=== PATIENT | female | born 1985 | race Caucasian/White ===

== ENCOUNTER 2017-03-01 08:45 | Day surgery (SDC) | payer OTHER ==
[2017-02-28 14:18] LABS: CHLORIDE,CL 106 mmol/L (98-110); SODIUM,NA 140 mmol/L (136-146)
[~2017-03-01 08:45] MED LIST: Bupivacaine 0.25% 10 ML SDV ONE; Fluorescein 5 ML Vial ONE; Lidocaine 2% 5 ML SDV ONE; Methylene Blue 50 MG/10 ML Ampule ONE; Midazolam 1 MG/ML 2 ML SDV ONE; Neostigmine Methylsulfate 1 MG/ML 5 ML Syringe ONE; Ondansetron 4 MG/2 ML SDV ONE; Propofol 200 MG/20 ML SDV ONE; Rocuronium 10 MG/ML 10 ML Syringe ONE; Sodium Chloride 0.9% 10 ML Syringe FLUSH PRN; Sodium Chloride 0.9% 2.5 ML Syringe FLUSH PRN; ceFAZolin 2 GM in Premix Bag 1 BAG IV ONE; fentaNYL 100 MCG/2 ML SDV ONE
--- NOTE | 2017-03-01 09:21 | PCM.PREANE ---
Preanesthetic Assessment - Anesthesia/Transfusion/Family Hx Anesthesia History: Prior Anesthesia Without Reaction Family History of Anesthesia Reaction: No Transfusion History: No Prior Transfusion(s) Intubation History: Unknown - Review of Systems General: No Symptoms Pulmonary: No Symptoms Cardiovascular: No Symptoms Gastrointestinal: No Symptoms Neurological: No Symptoms Other: Reports: None - Physical Assessment O2 Sat by Pulse Oximetry: 98 Respiratory Rate: 16 Vital Signs: Last Vital Signs Temp 36.3 C 03/01/17 09:15 Pulse 67 03/01/17 09:15 Resp 16 03/01/17 09:15 BP 113/68 03/01/17 09:15 Pulse Ox 98 03/01/17 09:15 Height: 1.66 m Weight: 78.018 kg ASA Class: 2 Mental Status: Alert & Oriented x3 Airway Class: Mallampati = 2 Dentition: Reports: Normal Dentition Thyro-Mental Finger Breadths: 3 Mouth Opening Finger Breadths: 3 ROM/Head Extension: Full Lungs: Clear to Auscultation, Normal Respiratory Effort Cardiovascular: Regular Rate, Regular Rhythm - Lab Values: Laboratory Last Values WBC 10.37 K/uL (4.0-11.0) 02/28/17 13:35 RBC 4.92 M/uL (4.30-5.90) 02/28/17 13:35 Hgb 13.8 g/dL (12.0-16.0) 02/28/17 13:35 Hct 40.9 % (36.0-46.0) 02/28/17 13:35 MCV 83.1 fL (80.0-98.0) 02/28/17 13:35 MCH 28.0 pg (27.0-32.0) 02/28/17 13:35 MCHC 33.7 g/dL (31.0-37.0) 02/28/17 13:35 RDW Std Deviation 41.6 fl (28.0-62.0) 02/28/17 13:35 RDW Coeff of Shawn 14 % (11.0-15.0) 02/28/17 13:35 Plt Count 265 K/uL (150-400) 02/28/17 13:35 MPV 10.10 fL (7.40-12.00) 02/28/17 13:35 Nucleated RBC % 0.0 /100WBC 02/28/17 13:35 Nucleated RBCs # 0 K/uL 02/28/17 13:35 Sodium 140 mmol/L (136-146) 02/28/17 13:35 Potassium 3.9 mmol/L (3.5-5.1) 02/28/17 13:35 Chloride 106 mmol/L (98-110) 02/28/17 13:35 Carbon Dioxide 26 mmol/L (21-31) 02/28/17 13:35 BUN 15 mg/dL (6.0-23.0) 02/28/17 13:35 Creatinine 1.0 mg/dL (0.6-1.5) 02/28/17 13:35 Est Cr Clr Drug Dosing 75.51 mL/min 02/28/17 13:35 Estimated GFR (MDRD) > 60.0 ml/min 02/28/17 13:35 Glucose 88 mg/dL (60-110) 02/28/17 13:35 Calcium 9.6 mg/dL (8.8-10.8) 02/28/17 13:35 HCG, Qual NEGATIVE (NEG) 02/28/17 13:35 Blood Type O NEGATIVE 02/28/17 13:35 Antibody Screen NEGATIVE 02/28/17 13:35 - Allergies Allergies/Adverse Reactions: Allergies Allergy/AdvReac Type Severity Reaction Status Date / Time melon Allergy throat Verified 02/24/17 08:55 swelling - Blood Blood Available: No - Anesthesia Plan Pre-Op Medication Ordered: None - Acknowledgements Anesthesia Type Planned: General Anesthesia Pt an Appropriate Candidate for the Planned Anesthesia: Yes Alternatives and Risks of Anesthesia Discussed w Pt/Guardian: Yes Pt/Guardian Understands and Agrees with Anesthesia Plan: Yes PreAnesthesia Questionnaire HEENT History: Reports: Other (See Below) Other HEENT History: wears glasses Respiratory History: Reports: Asthma Other Respiratory History: sports induced asthma Gastrointestinal History: Reports: GERD SODA DIALYZER History: Reports: Psychiatric History: Reports: Anxiety Endocrine/Metabolic History: Reports: Other (See Below) Other Endocrine/Metabolic History: hypothyroid during Hematologic History: Reports: Anemia - Past Surgical History Head Surgeries/Procedures: Reports: None HEENT Surgical History: Reports: Adenoidectomy, Tonsillectomy, Other (See Below ) (turbinectomy during the same surgery (T&A)) - SUBSTANCE USE Smoking Status *Q: Never Smoker Recreational Drug Use History: No - HOME MEDS Home Medications: Home Meds Albuterol [IJD: Albuterol HFA] 2 puff INH ASDIRECTED PRN 02/24/17 [History] Docusate Sodium [Stool Softener] 1 tab PO ASDIRECTED 02/24/17 [History] Escitalopram [Lexapro] 10 mg PO DAILY 02/24/17 [History] Hydrocortisone Acetate [Anucort-HC] 1 supp RECTAL ASDIRECTED PRN 02/24/17 [ History] Iron Supplement 20 ml PO DAILY 02/24/17 [History] Multivitamin [Multivitamins] 1 tab PO DAILY 02/24/17 [History] - CURRENT (IN HOUSE) MEDS Current Meds: Current Medications Lactated Ringer's (Ringers, Lactated) 1,000 mls @ 100 mls/hr IV ASDIRECTED ERIK Sodium Chloride (Saline Flush) 10 ml FLUSH ASDIRECTED PRN PRN Reason: Keep Vein Open Sodium Chloride (Saline Flush) 2.5 ml FLUSH ASDIRECTED PRN PRN Reason: Keep Vein Open Discontinued Medications Bupivacaine HCl (Sensorcaine-Mpf 0.25%) Confirm Administered Dose 20 ml .ROUTE .STK-MED ONE Stop: 03/01/17 07:23 Fentanyl (Sublimaze) Confirm Administered Dose 200 mcg .ROUTE .STK-MED ONE Stop: 03/01/17 08:34 Fluorescein Sodium (Ak-Fluor) Confirm Administered Dose 5 ml .ROUTE .STK-MED ONE Stop: 03/01/17 07:23 Glycopyrrolate () Confirm Administered Dose 1 mg .ROUTE .STK-MED ONE Stop: 03/01/17 08:34 Cefazolin Sodium/Dextrose 2 gm (/ Premix) 50 mls @ 100 mls/hr IV ONETIME ONE Stop: 03/01/17 08:41 Lidocaine (Xylocaine-Mpf 2%) Confirm Administered Dose 5 ml .ROUTE .STK-MED ONE Stop: 03/01/17 08:34 Methylene Blue (Provayblue) Confirm Administered Dose 50 mg .ROUTE .STK-MED ONE Stop: 03/01/17 07:23 Midazolam HCl (Versed 1 Mg/Ml) Confirm Administered Dose 2 mg .ROUTE .STK-MED ONE Stop: 03/01/17 08:34 Neostigmine Methylsulfate (Neostigmine) Confirm Administered Dose 5 mg .ROUTE .STK-MED ONE Stop: 03/01/17 08:34 Ondansetron HCl (Zofran) Confirm Administered Dose 4 mg .ROUTE .STK-MED ONE Stop: 03/01/17 08:34 Propofol (Diprivan 20 Ml) Confirm Administered Dose 200 mg .ROUTE .STK-MED ONE Stop: 03/01/17 08:34 Rocuronium [place] (Zemuron) Confirm Administered Dose 100 mg .ROUTE .STK-MED ONE Stop: 03/01/17 08:34
[2017-03-01] MEDS: Lactated Ringers 1,000 ML IV SCH ×2 (09:35→15:18)
[2017-03-01] MEDS ORDERED: ceFAZolin 1 GM Vial ONE (11:33)
[2017-03-01] MEDS ORDERED: Sodium Chloride 0.9% 20 ML ONE (11:33)
[2017-03-01] MEDS ORDERED: ePHEDrine 50 MG/ML SDV ONE (11:37)
[2017-03-01] MEDS ORDERED: Furosemide 40 MG/4 ML VIAL ONE (11:39)
[2017-03-01] MEDS ORDERED: fentaNYL 100 MCG/2 ML SDV ONE (12:05)
[2017-03-01] MEDS ORDERED: HYDROmorphone 2 MG/ML Syringe ONE (12:37)
[2017-03-01] MEDS ORDERED: Labetalol 100 MG/20 ML MDV ONE (12:50)
[2017-03-01] MEDS ORDERED: Promethazine 25 MG/ML SDV IM PRN (13:31)
[2017-03-01] MEDS ORDERED: Ondansetron 4 MG/2 ML SDV IVPUSH PRN (13:31)
[2017-03-01] MEDS ORDERED: Morphine 2 MG/ML Syringe IVPUSH PRN (13:31)
[2017-03-01] MEDS ORDERED: Ketorolac 30 MG/ML SDV IVPUSH ONE (13:31)
--- NOTE | 2017-03-01 13:31 | PCM.OPNOTE ---
- General Post-Op/Procedure Note Date of Surgery/Procedure: 03/01/17 Operative Procedure(s): laparoscopically assisted vaginal hysterectomy with bilateral salpingectomy and cystoscopy Findings: normal pelvis Pre Op Diagnosis: menometrorrhagia and pelvic pain; family history of ovarian cancer. Post-Op Diagnosis: Same Anesthesia Technique: General ET Tube Primary Surgeon: Kayla Hadley Secondary Surgeon: Candice Linton Anesthesia Provider: Kumar Adams Chief Of Staff Doctor: Rober Thomas Pathology: uterus and bilateral fallopian tubes. Fluid Replacement, Intraop: 2,500 EBL in mLs: 350 Complications: None Known Condition: Good
--- NOTE | 2017-03-01 14:07 | PCM.POSTAN ---
POST ANESTHESIA ASSESSMENT - MENTAL STATUS Mental Status: Alert, Oriented - RESPIRATORY Respiratory Status: Respiratory Rate WNL, Airway Patent, O2 Saturation Stable - CARDIOVASCULAR CV Status: Pulse Rate WNL, Blood Pressure Stable - GASTROINTESTINAL GI Status: No Symptoms - PAIN Pain Score: 2 - POST OP HYDRATION Hydration Status: Adequate & Stable - OBSERVATIONS Free Text/Narrative:: no anesthesia problems
[2017-03-01] MEDS: Ketorolac 30 MG/ML SDV IVPUSH SCH ×2 (16:25→20:46)
[2017-03-01] MEDS: Acetaminophen/oxyCODONE 325-5 MG Tab PO PRN ×2 (17:34→22:22)
[2017-03-02] MEDS: Lactated Ringers 1,000 ML IV SCH (00:54)
[2017-03-02] MEDS: Acetaminophen/oxyCODONE 325-5 MG Tab PO PRN ×2 (01:22→05:12)
[2017-03-02] MEDS: Ketorolac 30 MG/ML SDV IVPUSH SCH ×2 (03:03→09:26)
[2017-03-02 05:25] LABS: CHLORIDE,CL 110 mmol/L (98-110); SODIUM,NA 138 mmol/L (136-146)
--- NOTE | 2017-03-02 07:18 | PCM48HPAN ---
Post Anesthesia Note - EVALUATION WITHIN 48HRS OF ANESTHETIC Vital Signs in Normal Range: Yes Patient Participated in Evaluation: Yes Respiratory Function Stable: Yes Airway Patent: Yes Cardiovascular Function Stable: Yes Hydration Status Stable: Yes Pain Control Satisfactory: Yes Nausea and Vomiting Control Satisfactory: Yes Mental Status Recovered: Yes
[2017-03-02 08:14] VITALS: BP 100/52
--- NOTE | 2017-03-02 08:53 | PCM.SURGPN ---
- General Info Date of Service: 03/02/17 Date of Surgery/Procedure: 03/01/17 POD#: 1 Post-Op Diagnosis: menometrorrhagia, pelvic pain, family history of ovarian cancer. Functional Status: Reports: Pain Controlled, Tolerating Diet, Ambulating, Urinating (pain well controlled. ) - Review of Systems General: Reports: No Symptoms HEENT: Reports: No Symptoms Pulmonary: Reports: No Symptoms Cardiovascular: Reports: No Symptoms Gastrointestinal: Reports: No Symptoms Genitourinary: Reports: No Symptoms Musculoskeletal: Reports: No Symptoms Skin: Reports: No Symptoms Neurological: Reports: No Symptoms Psychiatric: Reports: No Symptoms - Patient Data Vitals - Most Recent: Last Vital Signs Temp 37.1 C 03/02/17 08:00 Pulse 80 03/02/17 08:00 Resp 16 03/02/17 08:00 BP 100/52 L 03/02/17 08:00 Pulse Ox 96 03/02/17 08:00 Weight - Most Recent: 78.018 kg I&O - Last 24 Hours: Intake & Output 03/01/17 03/02/17 03/02/17 22:59 06:59 14:59 Output Total 350 Balance -350 Lab Results Last 24 Hrs: Laboratory Results - last 24 hr 03/02/17 03/02/17 Range/Units 04:51 04:51 WBC 12.25 H (4.0-11.0) K/uL RBC 4.11 L (4.30-5.90) M/uL Hgb 11.5 L (12.0-16.0) g/dL Hct 34.4 L (36.0-46.0) % MCV 83.7 (80.0-98.0) fL MCH 28.0 (27.0-32.0) pg MCHC 33.4 (31.0-37.0) g/dL RDW Std Deviation 43.0 (28.0-62.0) fl RDW Coeff of Shawn 14 (11.0-15.0) % Plt Count 206 (150-400) K/uL MPV 10.00 (7.40-12.00) fL Neut % (Auto) 80.0 (48.0-80.0) % Lymph % (Auto) 13.6 L (16.0-40.0) % Roberts % (Auto) 5.7 (0.0-15.0) % Eos % (Auto) 0.5 (0.0-7.0) % Baso % (Auto) 0.2 (0.0-1.5) % Neut # (Auto) 9.8 H (1.4-5.7) K/uL Lymph # (Auto) 1.7 (0.6-2.4) K/uL Roberts # (Auto) 0.7 (0.0-0.8) K/uL Eos # (Auto) 0.1 (0.0-0.7) K/uL Baso # (Auto) 0.0 (0.0-0.1) K/uL Nucleated RBC % 0.0 /100WBC Nucleated RBCs # 0 K/uL Sodium 138 (136-146) mmol/L Potassium 3.8 (3.5-5.1) mmol/L Chloride 110 (98-110) mmol/L Carbon Dioxide 24 (21-31) mmol/L BUN 10 (6.0-23.0) mg/dL Creatinine 0.7 (0.6-1.5) mg/dL Est Cr Clr Drug Dosing 107.88 mL/min Estimated GFR (MDRD) > 60.0 ml/min Glucose 119 H (60-110) mg/dL Calcium 8.7 L (8.8-10.8) mg/dL Med Orders - Current: Current Medications Lactated Ringer's (Ringers, Lactated) 1,000 mls @ 100 mls/hr IV ASDIRECTED [facility] Last Admin: 03/02/17 00:54 Dose: 100 mls/hr Ketorolac Tromethamine (Toradol) 30 mg IVPUSH Q6H [facility] Stop: 03/06/17 13:32 Last Admin: 03/02/17 03:03 Dose: 30 mg Morphine Sulfate (Morphine) 2 mg IVPUSH Q2H PRN PRN Reason: Pain (severe 7-10) Last Admin: 03/01/17 19:20 Dose: 2 mg Ondansetron HCl (Zofran) 4 mg IVPUSH Q6H PRN PRN Reason: Nausea/Vomiting Last Admin: 03/01/17 18:56 Dose: 4 mg Oxycodone/Acetaminophen (Percocet 325-5 Mg) 1 - 2 tab PO Q4H PRN PRN Reason: Pain (moderate 4-6) Last Admin: 03/02/17 05:12 Dose: 2 tab Promethazine HCl (Phenergan) 25 mg IM Q6H PRN PRN Reason: Nausea/Vomiting Sodium Chloride (Saline Flush) 10 ml FLUSH ASDIRECTED PRN PRN Reason: Keep Vein Open Sodium Chloride (Saline Flush) 2.5 ml FLUSH ASDIRECTED PRN PRN Reason: Keep Vein Open Discontinued Medications Bupivacaine HCl (Sensorcaine-Mpf 0.25%) Confirm Administered Dose 20 ml .ROUTE .STK-MED ONE Stop: 03/01/17 07:23 Cefazolin Sodium (Ancef) Confirm Administered Dose 2 gm .ROUTE .STK-MED ONE Stop: 03/01/17 11:34 Ephedrine Sulfate (Ephedrine Sulfate) Confirm Administered Dose 50 mg .ROUTE .STK-MED ONE Stop: 03/01/17 11:38 Fentanyl (Sublimaze) Confirm Administered Dose 200 mcg .ROUTE .STK-MED ONE Stop: 03/01/17 08:34 Fentanyl (Sublimaze) Confirm Administered Dose 100 mcg .ROUTE .STK-MED ONE Stop: 03/01/17 12:06 Fluorescein Sodium (Ak-Fluor) Confirm Administered Dose 5 ml .ROUTE .STK-MED ONE Stop: 03/01/17 07:23 Furosemide (Lasix) Confirm Administered Dose 40 mg .ROUTE .STK-MED ONE Stop: 03/01/17 11:40 Glycopyrrolate () Confirm Administered Dose 1 mg .ROUTE .STK-MED ONE Stop: 03/01/17 08:34 Hydromorphone HCl (Dilaudid) Confirm Administered Dose 2 mg .ROUTE .STK-MED ONE Stop: 03/01/17 12:38 Cefazolin Sodium/Dextrose 2 gm (/ Premix) 50 mls @ 100 mls/hr IV ONETIME ONE Stop: 03/01/17 08:41 Last Admin: 03/01/17 14:12 Dose: Not Given Sodium Chloride (Normal Saline) Confirm Administered Dose 20 mls @ as directed .ROUTE .STK-MED ONE Stop: 03/01/17 11:34 Ketorolac Tromethamine (Toradol) 30 mg IVPUSH ONETIME ONE Stop: 03/01/17 13:32 Last Admin: 03/01/17 15:17 Dose: 30 mg Labetalol HCl (Normodyne) Confirm Administered Dose 100 mg .ROUTE .STK-MED ONE Stop: 03/01/17 12:51 Lidocaine (Xylocaine-Mpf 2%) Confirm Administered Dose 5 ml .ROUTE .STK-MED ONE Stop: 03/01/17 08:34 Methylene Blue (Provayblue) Confirm Administered Dose 50 mg .ROUTE .STK-MED ONE Stop: 03/01/17 07:23 Midazolam HCl (Versed 1 Mg/Ml) Confirm Administered Dose 2 mg .ROUTE .STK-MED ONE Stop: 03/01/17 08:34 Neostigmine Methylsulfate (Neostigmine) Confirm Administered Dose 5 mg .ROUTE .STK-MED ONE Stop: 03/01/17 08:34 Ondansetron HCl (Zofran) Confirm Administered Dose 4 mg .ROUTE .STK-MED ONE Stop: 03/01/17 08:34 Propofol (Diprivan 20 Ml) Confirm Administered Dose 200 mg .ROUTE .STK-MED ONE Stop: 03/01/17 08:34 Rocuronium [place] (Zemuron) Confirm Administered Dose 100 mg .ROUTE .STK-MED ONE Stop: 03/01/17 08:34 - Exam Wound/Incisions: Healing Well (hemostatic stitch from umbilical incision removed.) General: Alert, Oriented Neck: Supple Lungs: Clear to Auscultation Cardiovascular: Regular Rate, Regular Rhythm GI/Abdominal Exam: Normal Bowel Sounds, Soft, Non-Tender, No Organomegaly, No Distention Extremities: Normal Inspection, Normal Range of Motion, Non-Tender, No Pedal Edema, Normal Capillary Refill Skin: Warm, Dry, Intact Psy/Mental Status: Alert, Normal Affect, Normal Mood - Problem List & Annotations (1) Heavy menstrual bleeding SNOMED Code(s): 404465661 Code(s): N92.0 - EXCESSIVE AND FREQUENT MENSTRUATION WITH REGULAR CYCLE Status: Acute Current Visit: Yes (2) Family history of malignant neoplasm of ovary SNOMED Code(s): 471122718 Code(s): Z80.41 - FAMILY HISTORY OF MALIGNANT NEOPLASM OF OVARY Status: Acute Current Visit: Yes (3) Pelvic and perineal pain SNOMED Code(s): 147645162 Code(s): R10.2 - PELVIC AND PERINEAL PAIN Status: Acute Current Visit: Yes - Problem List Review Problem List Initiated/Reviewed/Updated: Yes - My Orders Last 24 Hours: Active Orders 24 hr Category Date Time Status Patient Status [ADT] Routine ADT 03/01/17 13:32 Active Antiembolic Devices [RC] PER UNIT ROUTINE Care 03/01/17 13:33 Active Notify Provider Intake and Out [RC] ASDIRECTED Care 03/01/17 13:32 Active Notify Provider Vital Signs [RC] ASDIRECTED Care 03/01/17 13:32 Active Oxygen Therapy [RC] ASDIRECTED Care 03/01/17 13:32 Active RT Incentive Spirometry [RC] Q2HWA Care 03/01/17 13:32 Active Up With Assistance [RC] PER UNIT ROUTINE Care 03/01/17 13:32 Active Up ad Nora [RC] PER UNIT ROUTINE Care 03/01/17 13:32 Active Vital Signs [RC] PER UNIT ROUTINE Care 03/01/17 08:12 Active Vital Signs [RC] PER UNIT ROUTINE Care 03/01/17 13:32 Active Regular Diet [DIET] Diet 03/01/17 Dinner Active HCG QUALITATIVE,URINE [URCHEM] Routine Lab 03/01/17 08:12 Uncollected Acetaminophen/oxyCODONE [Percocet 325-5 MG] Med 03/01/17 13:31 Active 1 - 2 tab PO Q4H PRN Ketorolac [Toradol] Med 03/01/17 13:45 Active 30 mg IVPUSH Q6H Lactated Ringers [Ringers, Lactated] 1,000 ml Med 03/01/17 09:30 Active IV ASDIRECTED Morphine Med 03/01/17 13:31 Active 2 mg IVPUSH Q2H PRN Ondansetron [Zofran] Med 03/01/17 13:31 Active 4 mg IVPUSH Q6H PRN Promethazine [Phenergan] Med 03/01/17 13:31 Active 25 mg IM Q6H PRN Sodium Chloride 0.9% [Saline Flush] Med 03/01/17 08:12 Active 10 ml FLUSH ASDIRECTED PRN Sodium Chloride 0.9% [Saline Flush] Med 03/01/17 08:12 Active 2.5 ml FLUSH ASDIRECTED PRN Peripheral IV Discontinue [OM.PC] Routine Oth 03/01/17 13:32 Ordered Peripheral IV Insertion Adult [OM.PC] Urgent Oth 03/01/17 08:12 Ordered Sequential Compression Device [OM.PC] Per Unit Routine Oth 03/01/17 08:12 Ordered Sequential Compression Device [OM.PC] Per Unit Routine Oth 03/01/17 13:32 Ordered Resuscitation Status Routine Resus Stat 03/01/17 13:31 Ordered Medication Orders Lactated Ringer's (Ringers, Lactated) 1,000 mls @ 100 mls/hr IV ASDIRECTED ERIK Last Admin: 03/02/17 00:54 Dose: 100 mls/hr Infusion: 03/02/17 00:54 Dose: 100 mls/hr Admin: 03/01/17 15:18 Dose: 100 mls/hr Infusion: 03/01/17 15:18 Dose: 100 mls/hr Admin: 03/01/17 09:35 Dose: 100 mls/hr Ketorolac Tromethamine (Toradol) 30 mg IVPUSH Q6H [facility] Stop: 03/06/17 13:32 Last Admin: 03/02/17 03:03 Dose: 30 mg Admin: 03/01/17 20:46 Dose: 30 mg Admin: 03/01/17 16:25 Dose: Morphine Sulfate (Morphine) 2 mg IVPUSH Q2H PRN PRN Reason: Pain (severe 7-10) Last Admin: 03/01/17 19:20 Dose: 2 mg Ondansetron HCl (Zofran) 4 mg IVPUSH Q6H PRN PRN Reason: Nausea/Vomiting Last Admin: 03/01/17 18:56 Dose: 4 mg Oxycodone/Acetaminophen (Percocet 325-5 Mg) 1 - 2 tab PO Q4H PRN PRN Reason: Pain (moderate 4-6) Last Admin: 03/02/17 05:12 Dose: 2 tab Admin: 03/02/17 01:22 Dose: 2 tab Admin: 03/01/17 22:22 Dose: 1 tab Admin: 03/01/17 17:34 Dose: 1 tab Promethazine HCl (Phenergan) 25 mg IM Q6H PRN PRN Reason: Nausea/Vomiting Sodium Chloride (Saline Flush) 10 ml FLUSH ASDIRECTED PRN PRN Reason: Keep Vein Open Sodium Chloride (Saline Flush) 2.5 ml FLUSH ASDIRECTED PRN PRN Reason: Keep Vein Open - Assessment Assessment (Free Text/Narrative):: POD#1 after LAVH/bilateral salpingectomy and cystoscopy. Stable, pain well controlled with oral medications, tolerating diet and voiding without difficulty. Feels ready to go home. - Plan Plan (Free Text/Narrative):: Discharge instructions reviewed. She will use OTC ibuprofen and rx Percocet for pain, she will continue with Miralax as needed for history of constipation. Discharge precautions reviewed.
--- NOTE | 2017-03-02 11:21 | OR ---
SURGEON: Kayla Hadley M.D. DATE OF PROCEDURE: 03/01/2017 PREOPERATIVE DIAGNOSES: 1. Menometrorrhagia. 2. Pelvic pain. 3. Family history of ovarian cancer. POSTOPERATIVE DIAGNOSES: 1. Menometrorrhagia. 2. Pelvic pain. 3. Family history of ovarian cancer. PROCEDURES PERFORMED: Laparoscopically assisted vaginal hysterectomy with bilateral salpingectomy and cystoscopy. MANAGER UNDERWRITING: Candice Linton MD. ANESTHESIA: General endotracheal. FLUIDS: 2500 mL of crystalloid. ESTIMATED BLOOD LOSS: 350 mL. FINDINGS: Normal-appearing uterus, tubes, and ovaries. Appendix appears normal. COMPLICATIONS: None known. DISPOSITION: Stable to Recovery. BRIEF HISTORY: This is a 31-year-old female. She presents with a history of heavy and irregular bleeding. She was initially treated with a Mirena IUD. After insertion of the Mirena IUD, she began to have pelvic pain on the left side. After removal of the IUD, the pelvic pain persisted, and the bleeding recurred. Therefore, she desired to proceed with definitive management with a hysterectomy. Additionally, she has an aunt who of ovarian cancer at a young age. She does desire removal of her tubes at the time of surgery for risk reduction for ovarian cancer. Risks were discussed including bleeding, infection, injury to bowel/bladder/blood vessels/ureter/other organs, risk of thromboembolic event, risk of anesthesia, and risk of change in sexual function. Understanding all these risks, she does desire to proceed. DESCRIPTION OF PROCEDURE: With the patient in dorsolithotomy position, under adequate general endotracheal anesthesia, the abdomen and perineum and vagina were prepped; the abdomen with chlorhexidine, and the perineum and vagina with Betadine. After the prep had dried, it was draped in the usual fashion for a laparoscopically-assisted vaginal surgery. A Nair catheter had been placed and backfilled with 30 mL of dilute methylene blue. Ancef 2 g IV had been given. After an appropriate time- out had been held, a bimanual examination revealed an eight-week size anteverted mobile uterus. Speculum was placed in the vagina. The cervix was dilated to accept an 8-mm Hegar dilator. The ZUMI uterine manipulator was then placed, and the balloon was filled with air. The speculum was removed. Finished Cigar Maker's gloves were changed. Attention was then turned abdominally, where 3 mL of 0.25% Marcaine were injected inferior to the umbilicus. A 5-mm incision was made with a scalpel. The anterior abdominal wall was elevated. Veress needle was inserted. A drop test confirmed intraperitoneal placement. Opening pressure was 3 mmHg. CO2 was insufflated to develop an adequate pneumoperitoneum of 13 mmHg. The abdomen was elevated, and the 5-mm port was placed. The laparoscope was placed into the abdominal cavity, and there was no evidence of any trauma at the port placement site. Two additional ports were placed, 2 cm medial and cephalad from the anterior superior iliac spine in a similar fashion under direct visualization. The uterus was elevated. The ureters were identified. They were deep within the medial leaf of the broad ligament. The fimbria of the left tube was grasped. The ligament between the fimbria and the uterus was cut and incised using the LigaSure, and then continuing proximally along the mesosalpinx on the left side. The LigaSure was then used to doubly ligate and cut along the lateral aspect of the uterus immediately adjacent to the uterus down to the lower broad ligament. The anterior leaf of the broad ligament was entered, and the bladder flap was begun to be developed. The posterior leaf was also dissected away to skeletonize the uterine vessels, which were then doubly ligated and cut with the LigaSure. This process was repeated on the right side, meeting the anterior visceral peritoneal fold that was begun on the opposite side. This being completed, the abdomen was desufflated. The instruments had been removed from the abdomen. The patient was placed in the high dorsolithotomy Trendelenburg position. A weighted speculum was placed posteriorly. A retractor was placed anteriorly and on the sidewalls. The cervix was grasped with a Rich tenaculum, after the ZUMI uterine manipulator was removed. The cervix was circumscribed using electrocautery. The anterior cul-de-sac was entered sharply. A finger was placed, and the anterior smooth surface of the uterus was palpable. The posterior cul-de-sac was entered sharply, and a Vitaliy-Auvard speculum was placed posteriorly. The uterosacral ligaments were then clamped with a Berny clamp, cut, and ligated using a Berny ligature of 2-0 Polysorb. These were retained. One additional pedicle was remaining. These were doubly clamped, as they did contain large blood vessels, cut, and ligated using a double Berny ligature of 2-0 Polysorb. This being completed, the uterus and tubes were delivered vaginally. The retained uterosacral ligament ligatures were ligated to the vaginal apices bilaterally. The vaginal cuff was closed with a running lock suture of 0 Polysorb. The bladder had been released prior to proceeding with the vaginal portion of the surgery. At this point, the balloon was desufflated, and cystoscopy was performed after IV fluorescein and Lasix had been given. There was copious flow from bilateral ureteral orifices, and there was no evidence of any trauma to the bladder mucosa. Therefore, the catheter was replaced, the speculum was placed in the vagina, and the cuff was completely hemostatic. Therefore, the milk drying machine operator's gloves were again changed. The abdomen was reinsufflated. The pelvis was copiously irrigated. Any areas of bleeding that were noted were cauterized, and a sponge stick had been placed into the vagina to better delineate the location of the vaginal cuff versus the bladder. Cautery was not used near the bladder, only on the vaginal cuff. With this, there was excellent hemostasis. The EndoAvitene was also placed on the anterior vaginal cuff near the area of dissection of the bladder. This being completed, the pelvis was inspected at 4 mmHg pressure, and was completely hemostatic. Therefore, the abdomen was further desufflated. The port sites were removed. WOUND CLOSURE: The skin was closed with subcuticular sutures of 4-0 Caprosyn. The umbilical incision continued to bleed fairly copiously from the superficial standpoint. Multiple [id number] sutures were placed in the deep tissue. Finally, I did place a deep [id number] suture for complete hemostasis using the 4-0 Caprosyn. COUNT RESULTS: Final sponge, needle, and instrument counts were reported as correct. POSTOPERATIVE CONDITION: There were no known complications. The patient was transferred to Recovery in good condition. MADISON NEAL /[id number]
== END 2017-03-02 10:30 | disposition home or self-care (01) ==
LOC: MW.SDS 08:45 → MW.OB 13:32 → UNDOADMOB 13:32 → UNDODISOB 03-02 10:30 → MW.SDS 03-02 10:30
PROVIDERS: ATTEND Obstetrics & Gynecology
DX: N92.1 Excessive and frequent menstruation with irregular cycle (principal); J45.990 Exercise induced bronchospasm; F41.9 Anxiety disorder, unspecified; Z79.899 Other long term (current) drug therapy; Z98.890 Other specified postprocedural states; Z90.89 Acquired absence of other organs; Z91.018 Allergy to other foods
CPT/HCPCS: 36415; 58552; 80048; 84703; 85025; 85027; 86850; 86900; 86901; 88307; A9270; J0690; J1170; J1885; J1940; J2250; J2270; J2405; J3010; J7120; 00840; J2704

== ENCOUNTER 2018-09-28 06:23 | Day surgery (SDC) | payer SELFPAY, OTHER ==
[2018-09-28] MEDS ORDERED: Midazolam 1 MG/ML 2 ML SDV ONE (06:59)
[2018-09-28] MEDS ORDERED: fentaNYL 100 MCG/2 ML SDV ONE (06:59)
[2018-09-28] MEDS ORDERED: Propofol 200 MG/20 ML SDV ONE (06:59)
--- NOTE | 2018-09-28 07:08 | PCM.PREANE ---
Preanesthetic Assessment - Anesthesia/Transfusion/Family Hx Anesthesia History: Prior Anesthesia Without Reaction Family History of Anesthesia Reaction: No Transfusion History: No Prior Transfusion(s) Intubation History: Unknown - Review of Systems General: No Symptoms Pulmonary: No Symptoms Cardiovascular: No Symptoms Gastrointestinal: No Symptoms Neurological: No Symptoms Other: Reports: None - Physical Assessment Height: 1.68 m Weight: 84.822 kg ASA Class: 2 Mental Status: Alert & Oriented x3 Airway Class: Mallampati = 1 Dentition: Reports: Normal Dentition (uneven edges on front upper teeth) Thyro-Mental Finger Breadths: 3 Mouth Opening Finger Breadths: 3 ROM/Head Extension: Full Lungs: Clear to Auscultation, Normal Respiratory Effort Cardiovascular: Regular Rate, Regular Rhythm - Allergies Allergies/Adverse Reactions: Allergies Allergy/AdvReac Type Severity Reaction Status Date / Time melon Allergy throat Verified 09/23/18 09:48 swelling - Blood Blood Available: No - Anesthesia Plan Pre-Op Medication Ordered: None - Acknowledgements Anesthesia Type Planned: General Anesthesia Pt an Appropriate Candidate for the Planned Anesthesia: Yes Alternatives and Risks of Anesthesia Discussed w Pt/Guardian: Yes Pt/Guardian Understands and Agrees with Anesthesia Plan: Yes PreAnesthesia Questionnaire HEENT History: Reports: Other (See Below) Other HEENT History: wears glasses Cardiovascular History: Reports: None Respiratory History: Reports: Asthma Other Respiratory History: sports induced asthma as a teenager Gastrointestinal History: Reports: None Genitourinary History: Reports: None 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 Musculoskeletal History: hx fx wrist and ankle Neurological History: Reports: None Psychiatric History: Reports: Anxiety Endocrine/Metabolic History: Reports: Other (See Below) Other Endocrine/Metabolic History: hypothyroid during Hematologic History: Reports: Anemia Immunologic History: Reports: None Oncologic (Cancer) History: Reports: None Dermatologic History: Reports: None - Past Surgical History Head Surgeries/Procedures: Reports: None HEENT Surgical History: Reports: Adenoidectomy, Tonsillectomy Cardiovascular Surgical History: Reports: None GI Surgical History: Reports: None Female Surgical History: Reports: Hysterectomy (vaginal) Endocrine Surgical History: Reports: None Neurological Surgical History: Reports: None Musculoskeletal Surgical History: Reports: None Oncologic Surgical History: Reports: None Dermatological Surgical History: Reports: None - SUBSTANCE USE Smoking Status *Q: Former Smoker Days Per Week of Alcohol Use: 7 Number of Drinks Per Day: 1 Total Drinks Per Week: 7 Recreational Drug Use History: No - HOME MEDS Home Medications: Home Meds Multivitamin [Multivitamins] 1 tab PO DAILY 02/24/17 [History] EPINEPHrine [Epipen] 1 injection SUBCUT ASDIRECTED PRN 09/23/18 [History] - CURRENT (IN HOUSE) MEDS Current Meds: Current Medications Hydrocodone Bitart/Acetaminophen ([place] 325-5 Mg) 1 tab PO Q4H PRN PRN Reason: Pain Bupivacaine HCl/Epinephrine Bitart (Marcaine 0.25%/Epinephrine 1:200,000) 30 ml INJECT ONETIME ONE Stop: 09/28/18 08:01 Cefazolin Sodium/Dextrose 2 gm (/ Premix) 50 mls @ 100 mls/hr IV ONETIME ONE Stop: 09/28/18 08:29 Lactated Ringer's (Ringers, Lactated) 1,000 mls @ 125 mls/hr IV ASDIRECTED ERIK Discontinued Medications Fentanyl (Sublimaze) Confirm Administered Dose 100 mcg .ROUTE .STK-MED ONE Stop: 09/28/18 07:00 Midazolam HCl (Versed 1 Mg/Ml) Confirm Administered Dose 2 mg .ROUTE .STK-MED ONE Stop: 09/28/18 07:00 Propofol (Diprivan 20 Ml) Confirm Administered Dose 200 mg .ROUTE .STK-MED ONE Stop: 09/28/18 07:00
[2018-09-28] MEDS ORDERED: EPINEPHrine 1 MG/ML SDV ONE (07:35)
[2018-09-28] MEDS ORDERED: Gentamicin 40 MG/ML 2 ML Vial ONE (07:35)
[2018-09-28] MEDS ORDERED: Bupivacaine 25%/EPINEPHrine/PF 30 ML ONE (07:36)
[2018-09-28] MEDS ORDERED: ceFAZolin 1 GM Vial ONE (07:48)
[2018-09-28] MEDS ORDERED: ceFAZolin 2 GM in Premix Bag 1 BAG IV ONE (08:00)
[2018-09-28] MEDS ORDERED: Bupivacaine 25%/EPINEPHrine/PF 30 ML Vial INJECT ONE (08:00)
[2018-09-28] MEDS ORDERED: Lactated Ringers 1,000 ML IV SCH (08:00)
[2018-09-28] MEDS ORDERED: Acetaminophen/HYDROcodone 325-5 MG Tab PO PRN (08:00)
[2018-09-28] MEDS ORDERED: HYDROmorphone 2 MG/ML Syringe ONE (08:16)
[2018-09-28] MEDS ORDERED: Rocuronium 100 MG/10 ML Syringe ONE (08:30)
[2018-09-28] MEDS ORDERED: Neostigmine Methylsulfate 1 MG/ML 5 ML Syringe ONE (08:30)
[2018-09-28] MEDS ORDERED: Glycopyrrolate 0.2 MG/ML SDV ONE (08:30)
[2018-09-28] MEDS ORDERED: HYDROmorphone 2 MG/ML SDV IVPUSH ONE (08:31)
[2018-09-28] MEDS ORDERED: Ondansetron 4 MG/2 ML SDV IVPUSH ONE (08:31)
[2018-09-28] MEDS ORDERED: Meperidine PF 25 MG/ML Syringe IVPUSH ONE (08:31)
[2018-09-28] MEDS ORDERED: ceFAZolin/Dextrose,Iso-Osmotic 2 GM/50 ML Duplex Bag IV ONE (08:32)
[2018-09-28] MEDS: fentaNYL 100 MCG/2 ML SDV IVPUSH PRN ×2 (09:46→09:54)
--- NOTE | 2018-09-28 10:20 | PCM.POSTAN ---
POST ANESTHESIA ASSESSMENT - MENTAL STATUS Mental Status: Alert, Oriented - RESPIRATORY Respiratory Status: Respiratory Rate WNL, Airway Patent, O2 Saturation Stable - CARDIOVASCULAR CV Status: Pulse Rate WNL, Blood Pressure Stable - GASTROINTESTINAL GI Status: No Symptoms - POST OP HYDRATION Hydration Status: Adequate & Stable
[2018-09-28] MEDS ORDERED: Ketorolac 30 MG/ML SDV IVPUSH ONE (11:32)
[2018-09-28] MEDS ORDERED: Cyclobenzaprine 5 MG Tab PO PRN (11:33)
[2018-09-28 11:36] VITALS: BP 112/74
--- NOTE | 2018-09-28 17:05 | PCM.OPNOTE ---
- General Post-Op/Procedure Note Date of Surgery/Procedure: 09/28/18 Operative Procedure(s): bilateral silicone breast augmentation Gracewilygabbie SRM- 560cc submuscular Pre Op Diagnosis: cosmetic Post-Op Diagnosis: Same Anesthesia Technique: General ET Tube, Local Primary Surgeon: Janice Monroe Powder Blender And Pourer: Alta Lyon Complications: None Condition: Good Free Text/Narrative:: Intake & Output 09/28/18 09/28/18 09/28/18 07:59 15:59 23:59 Intake Total 1100 Balance 1100
== END 2018-09-28 12:30 | disposition home or self-care (01) ==
LOC: MW.SDS 06:23
PROVIDERS: ATTEND Plastic Surgery
DX: Z41.1 Encounter for cosmetic surgery (principal); J45.990 Exercise induced bronchospasm; J30.1 Allergic rhinitis due to pollen; J30.89 Other allergic rhinitis; Z91.018 Allergy to other foods; Z91.09 Other allergy status, other than to drugs and biological substances; Z87.891 Personal history of nicotine dependence; Z79.899 Other long term (current) drug therapy
CPT/HCPCS: A9270-GY; J0171; J0690; J1170; J1580; J1885; J2001; J2250; J2704; J3010; J3490; J7120

== ENCOUNTER 2019-04-25 12:55 | Day surgery (SDC) | payer OTHER ==
[2019-04-25] MEDS ORDERED: Lactated Ringers 1,000 ML IV SCH (14:15)
--- NOTE | 2019-04-25 14:18 | PCM.PREANE ---
Preanesthetic Assessment - Anesthesia/Transfusion/Family Hx Anesthesia History: Prior Anesthesia Without Reaction Type of Anesthesia Reaction: Excessive Nausea/Vomiting Family History of Anesthesia Reaction: No Transfusion History: No Prior Transfusion(s) Intubation History: Unknown - Review of Systems General: No Symptoms Pulmonary: No Symptoms Cardiovascular: No Symptoms Neurological: No Symptoms Other: Reports: None - Physical Assessment Vital Signs: Last Vital Signs Temp 97.0 F 04/25/19 13:40 Pulse 64 04/25/19 13:40 Resp 16 04/25/19 13:40 BP 116/75 04/25/19 13:40 Pulse Ox 97 04/25/19 13:40 Height: 5 ft 6 in Weight: 89.358 kg ASA Class: 2 Mental Status: Alert & Oriented x3 Airway Class: Mallampati = 1 Dentition: Reports: Normal Dentition ROM/Head Extension: Full Lungs: Clear to Auscultation, Normal Respiratory Effort Cardiovascular: Regular Rate, Regular Rhythm - Allergies Allergies/Adverse Reactions: Allergies Allergy/AdvReac Type Severity Reaction Status Date / Time melon Allergy throat Verified 04/24/19 16:01 swelling - Blood Blood Available: No - Anesthesia Plan Pre-Op Medication Ordered: None - Acknowledgements Anesthesia Type Planned: General Anesthesia Pt an Appropriate Candidate for the Planned Anesthesia: Yes Alternatives and Risks of Anesthesia Discussed w Pt/Guardian: Yes Pt/Guardian Understands and Agrees with Anesthesia Plan: Yes Additional Comments: PMH: seasonal allergies, N&V from prednisone PLAN: prone positioning, get, avoid dexamethasone if possible. 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: Musculoskeletal History: Reports: Fracture Other Musculoskeletal History: hx of fx left wrist x2 as a child- no hardware Neurological History: Reports: None Psychiatric History: Reports: Anxiety Endocrine/Metabolic History: Reports: Obesity/BMI 30+, Other (See Below) Other Endocrine/Metabolic History: hx of Hyperthyroidism when - not since Hematologic History: Reports: Anemia Immunologic History: Reports: None Oncologic (Cancer) History: Reports: None Dermatologic History: Reports: None - Past Surgical History Head Surgeries/Procedures: Reports: None HEENT Surgical History: Reports: Adenoidectomy, Tonsillectomy Female Surgical History: Reports: Breast Implant, Hysterectomy - SUBSTANCE USE Smoking Status *Q: Former Smoker Tobacco Use Within Last Twelve Months: No Recreational Drug Use History: No - HOME MEDS Home Medications: Home Meds Multivitamin [Multivitamins] 1 tab PO DAILY 02/24/17 [History] Albuterol Sulfate [Albuterol Sulfate Hfa] 1 puff INH ASDIRECTED PRN 04/24/19 [ History] - CURRENT (IN HOUSE) MEDS Current Meds: Current Medications Lactated Ringer's (Ringers, Lactated) 1,000 mls @ 100 mls/hr IV ASDIRECTED ERIK
[2019-04-25] MEDS ORDERED: fentaNYL 100 MCG/2 ML SDV ONE (15:03)
[2019-04-25] MEDS ORDERED: Propofol 200 MG/20 ML SDV ONE (15:03)
[2019-04-25] MEDS ORDERED: Midazolam 1 MG/ML 2 ML SDV ONE (15:03)
[2019-04-25] MEDS ORDERED: Ketorolac 30 MG/ML SDV ONE (15:05)
[2019-04-25] MEDS ORDERED: Glycopyrrolate 0.2 MG/ML SDV ONE (15:05)
[2019-04-25] MEDS ORDERED: Rocuronium 100 MG/10 ML Syringe ONE (15:05)
[2019-04-25] MEDS ORDERED: Ondansetron 4 MG/2 ML SDV ONE (15:05)
[2019-04-25] MEDS ORDERED: Lidocaine 2% 5 ML SDV ONE (15:05)
[2019-04-25] MEDS ORDERED: Sugammadex Sodium 200 MG/2 ML VIAL ONE (15:08)
[2019-04-25] MEDS ORDERED: Bupivacaine 0.5% 10 ML SDV ONE (15:35)
[2019-04-25] MEDS ORDERED: Sodium Chloride 0.9% 20 ML ONE (15:49)
[2019-04-25] MEDS ORDERED: ceFAZolin 1 GM Vial ONE (15:49)
--- NOTE | 2019-04-25 16:28 | PCM.OPNOTE ---
- General Post-Op/Procedure Note Date of Surgery/Procedure: 04/25/19 Operative Procedure(s): Exam under anesthesia. Incision and drainage abscess. Seton placement. 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
[2019-04-25] MEDS ORDERED: Acetaminophen/HYDROcodone 325-5 MG Tab PO PRN (16:48)
--- NOTE | 2019-04-25 17:10 | PCM.POSTAN ---
POST ANESTHESIA ASSESSMENT - MENTAL STATUS Mental Status: Alert - VITAL SIGNS Vital Signs: Last Vital Signs Temp 36.2 C 04/25/19 16:15 Pulse 71 04/25/19 16:30 Resp 9 L 04/25/19 16:30 BP 112/75 04/25/19 16:30 Pulse Ox 100 04/25/19 16:30 - RESPIRATORY Respiratory Status: Respiratory Rate WNL - CARDIOVASCULAR CV Status: Pulse Rate WNL - GASTROINTESTINAL GI Status: No Symptoms - POST OP HYDRATION Hydration Status: Adequate & Stable
--- NOTE | 2019-04-25 17:33 | PCM48HPAN ---
Post Anesthesia Note - EVALUATION WITHIN 48HRS OF ANESTHETIC Vital Signs in Normal Range: Yes Patient Participated in Evaluation: Yes Respiratory Function Stable: Yes Airway Patent: Yes Cardiovascular Function Stable: Yes Hydration Status Stable: Yes Pain Control Satisfactory: Yes Nausea and Vomiting Control Satisfactory: Yes Mental Status Recovered: Yes Vital Signs: Last Vital Signs Temp 36.6 C 04/25/19 16:35 Pulse 63 04/25/19 16:50 Resp 14 04/25/19 16:50 BP 110/77 04/25/19 16:50 Pulse Ox 100 04/25/19 16:50
[2019-04-25 18:03] VITALS: BP 101/64; PULSE 70
--- NOTE | 2019-04-26 13:49 | OR ---
SURGEON: ELOINA LEY MD DATE OF PROCEDURE: 04/25/2019 PREOPERATIVE DIAGNOSIS: Perianal abscess. POSTOPERATIVE DIAGNOSES: Perianal abscess and anterior fistula. PROCEDURES PERFORMED: Incision and drainage of perianal abscess, perianal fistula seton placement. PRIMARY SURGEON: Eloina Ley MD. ANESTHESIA: General LMA. FLUIDS: 800 mL of crystalloid. ESTIMATED BLOOD LOSS: 5 mL. 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 COMPLICATIONS: None. INDICATIONS: The patient is a 34-year-old female who was referred to my clinic for a left buttock cyst. On physical exam, however, this appeared to be a perianal abscess with a possible perianal fistula. The patient underwent a CT scan that suggested the same. The decision was made to proceed to the operating room for an exam under anesthesia with incision and drainage of the perianal abscess and possible fistulotomy or seton placement if a fistula was found. The patient and I discussed the procedure; expected perioperative course; and risks including bleeding, infection, or damage to surrounding structures and including alteration of continence. The patient verbalized understanding and wishes to proceed. PROCEDURE IN DETAIL: The patient was brought into the OR and placed on the OR cart in a right lateral decubitus position. A time-out was completed verifying the patient's name, age, date of , allergies, and procedure to be performed. General LMA anesthesia was induced. The patient's arms, legs, and bony prominences were appropriately padded. The buttocks and anal area were then prepped and draped in usual standard fashion. On exam, the patient had a 2 cm x 1 cm area of fluctuance along the left buttock crease. This was proximal to the anoderm. On palpation, I could feel an indurated area extending from the abscess on the skin to the anus. A digital rectal exam was performed. I did not initially feel a fistula; however, I could see purulent material being expressed when I applied anterior pressure. I first turned my attention to the left buttock abscess. Using a 15 blade, I made a cruciate incision over the area of maximum fluctuance. Purulent material was expressed. I then took the corners off the cruciate incision, making a 2 cm x 1 cm x 1 mm opening. At the base of this area was a small opening. A proctoscope was inserted into the rectum. I then used a fistula probe to follow the opening at the base of the abscess. It tracked towards the anterior aspect of the anus. It then went through a large fistula in the anterior aspect of the anus. The patient appeared to have an intersphincteric perianal fistula, which was associated with her perianal abscess. The decision was made to place a seton. A seton was looped through the fistula tract out onto the anoderm and into the abscess cavity. This was secured with 3-0 silk ties. The tied section of the seton was then rotated so that the ties would be inside the fistula tract. The area on the left buttock was then anesthetized with 0.5% Marcaine plain. 4 x 4 fluffs and mesh underwear were applied. The patient was then placed back in the supine position and awoken. All counts were complete and correct at the end of the case. She was taken to the PACU in stable condition. AUGIE NEAL /[id number]
== END 2019-04-25 18:20 | disposition home or self-care (01) ==
LOC: MW.SDS 12:55
PROVIDERS: ATTEND Surgery
DX: K61.0 Anal abscess (principal); E03.9 Hypothyroidism, unspecified; Z87.891 Personal history of nicotine dependence; Z91.018 Allergy to other foods; J45.909 Unspecified asthma, uncomplicated; Z91.048 Other nonmedicinal substance allergy status
CPT/HCPCS: 46020; A9270; J0690; J1885; J2001; J2250; J2405; J2704; J3010; J3490; J7120; 00902

== ENCOUNTER 2019-10-22 09:11 | Emergency (ER) | payer OTHER ==
[2019-10-22] MEDS ORDERED: diphenhydrAMINE 50 MG/ML SDV IVPUSH ONE (09:38)
[2019-10-22] MEDS ORDERED: methylPREDNISolone Sodium Succinate 125 MG/2 ML SDV IVPUSH ONE (09:39)
[2019-10-22] MEDS ORDERED: Sodium Chloride 0.9% 1,000 ML IV ONE (09:39)
--- NOTE | 2019-10-22 10:46 | EDM.PDOC ---
ED HPI GENERAL MEDICAL PROBLEM - General Chief Complaint: Allergic Reaction Stated Complaint: RASH ALL OVER BODY Time Seen by Provider: 10/22/19 09:25 - Related Data Allergies Allergy/AdvReac Type Severity Reaction Status Date / Time melon Allergy throat Verified 10/22/19 09:21 swelling Home Meds: Home Meds Multivitamin [Multivitamins] 1 tab PO DAILY 02/24/17 [History] Cetirizine HCl [Zyrtec] 10 mg PO TID 14 Days #40 capsule 10/22/19 [Rx] Cetirizine [ZyrTEC] 1 tab PO DAILY 10/22/19 [History] EPINEPHrine [Epipen] 0.3 mg IM ONETIME #2 ml 10/22/19 [Rx] Past Medical History HEENT History: Reports: Other (See Below) Other HEENT History: wears glasses Cardiovascular History: Reports: None Respiratory History: Reports: Asthma Other Respiratory History: Exercised induced asthma- only uses inhaler during exercise Gastrointestinal History: Reports: Other (See Below) Other Gastrointestinal History: Perianal abcess removal Genitourinary History: Reports: None 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: Musculoskeletal History: Reports: Fracture Other Musculoskeletal History: hx of fx left wrist x2 as a child- no hardware Neurological History: Reports: None Psychiatric History: Reports: Anxiety Endocrine/Metabolic History: Reports: Obesity/BMI 30+, Other (See Below) Other Endocrine/Metabolic History: hx of Hyperthyroidism when - not since Hematologic History: Reports: Anemia Immunologic History: Reports: None Oncologic (Cancer) History: Reports: None Dermatologic History: Reports: None - Infectious Disease History Infectious Disease History: Reports: None - Past Surgical History Head Surgeries/Procedures: Reports: None HEENT Surgical History: Reports: Adenoidectomy, Tonsillectomy Cardiovascular Surgical History: Reports: None Respiratory Surgical History: Reports: None GI Surgical History: Reports: None Female Surgical History: Reports: Breast Implant, Hysterectomy Endocrine Surgical History: Reports: None Neurological Surgical History: Reports: None Musculoskeletal Surgical History: Reports: None Oncologic Surgical History: Reports: None Dermatological Surgical History: Reports: None Social & Family History - Family History Family Medical History: Noncontributory - Tobacco Use Smoking Status *Q: Never Smoker Second Hand Smoke Exposure: No - Caffeine Use Caffeine Use: Reports: Coffee - Recreational Drug Use Recreational Drug Use: No ED ROS ALLERGIC REACTION - Review of Systems Review Of Systems: Unable To Obtain (sbove) Reason Not Obtained: above ED EXAM GENERAL NO PERIP PULSE - Physical Exam Exam: Not Obtained (above) Course - Vital Signs Last Recorded V/S: Last Vital Signs Temp 96.4 F L 10/22/19 09:22 Pulse 87 10/22/19 09:22 Resp 18 10/22/19 09:22 BP 138/89 10/22/19 09:22 Pulse Ox 97 10/22/19 09:22 - Orders/Labs/Meds Meds: Medications Discontinued Medications Generic Name Dose Route Start Last Admin Trade Name Freq PRN Reason Stop Dose Admin Diphenhydramine HCl 50 mg 10/22/19 09:38 10/22/19 09:43 Benadryl IVPUSH 10/22/19 09:39 50 mg ONETIME ONE Administration Sodium Chloride 1,000 mls @ 2,000 mls/hr 10/22/19 09:39 10/22/19 09:43 Normal Saline IV 10/22/19 10:08 2,000 mls/hr .Bolus ONE Administration Methylprednisolone Sodium Succinate 125 mg 10/22/19 09:39 10/22/19 09:43 Solu-Medrol IVPUSH 10/22/19 09:40 125 mg ONETIME ONE Administration - Re-Assessments/Exams Free Text/Narrative Re-Assessment/Exam: 10/22/19 10:42 Reevaluation of the patient's rash shows that there are multiple areas of an erythematous base with a question of a clear fluid area. On some of her tattoos she does have hemorrhagic crusting. This is very concerning for chickenpox. I will start her on antiviral medication, give her symptomatic control and have her return to her primary care doctor as needed. We discussed high risk features including respiratory symptoms, neurologic symptoms, and avoiding patients. Departure - Departure Time of Disposition: 10:46 Disposition: Home, Self-Care 01 Clinical Impression: Chicken pox, Pruritic dermatitis - Discharge Information *PRESCRIPTION DRUG MONITORING PROGRAM REVIEWED*: Not Applicable *COPY OF PRESCRIPTION DRUG MONITORING REPORT IN PATIENT BON: Not Applicable Prescriptions: Cetirizine HCl [Zyrtec] 10 mg PO TID 14 Days #40 capsule EPINEPHrine [Epipen] 0.3 mg IM ONETIME #2 ml Instructions: Chickenpox, Adult, Rash, Adult Referrals: Blayne Burton MD [Primary Care Provider] - Forms: ED Department Discharge Additional Instructions: The following information is given to patients seen in the emergency department who are being discharged to home. This information is to outline your options for follow-up care. We provide all patients seen in our emergency department with a follow-up referral. The need for follow-up, as well as the timing and circumstances, are variable depending upon the specifics of your emergency department visit. If you don't have a primary care physician on staff, we will provide you with a referral. We always advise you to contact your personal physician following an emergency department visit to inform them of the circumstance of the visit and for follow-up with them and/or the need for any referrals to a consulting specialist. The emergency department will also refer you to a specialist when appropriate. This referral assures that you have the opportunity for follow-up care with a specialist. All of these measure are taken in an effort to provide you with optimal care, which includes your follow-up. Under all circumstances we always encourage you to contact your private physician who remains a resource for coordinating your care. When calling for follow-up care, please make the office aware that this follow-up is from your recent emergency room visit. If for any reason you are refused follow-up, please contact the [facility] Emergency Department at and asked to speak to the emergency department charge nurse. Your rash is concerning for chickenpox because it has a red base and a dewdrop on top. Some of your rash has hemorrhagic crusting or scabs. This is concerning for chickenpox. Please return to the emergency department for confusion, headache, shortness of breath, or any other concerns. Sepsis Event Note - Evaluation Sepsis Screening Result: No Definite Risk - Focused Exam Vital Signs: Vital Signs Temp Pulse Resp BP Pulse Ox 10/22/19 09:22 96.4 F L 87 18 138/89 97 Date Exam was Performed: 10/22/19 Time Exam was Performed: 10:42
[2019-10-22 10:58] VITALS: BP 119/82; PULSE 71
== END 2019-10-22 10:57 | disposition home or self-care (01) ==
LOC: MW.ED 09:11
DX: B01.9 Varicella without complication (principal); L30.9 Dermatitis, unspecified; J45.909 Unspecified asthma, uncomplicated; E66.9 Obesity, unspecified; Z68.30 Body mass index [BMI] 30.0-30.9, adult; Z91.018 Allergy to other foods
CPT/HCPCS: 96374; 96375; 99282; J1200; J2930; J7030

== ENCOUNTER 2021-04-15 10:57 | Day surgery (SDC) | payer OTHER ==
--- NOTE | 2021-04-15 10:23 | PCM.PREANE ---
Preanesthetic Assessment - Anesthesia/Transfusion/Family Hx Anesthesia History: Prior Anesthesia Without Reaction Transfusion History: No Prior Transfusion(s) Intubation History: Unknown - Review of Systems General: No Symptoms Pulmonary: No Symptoms Cardiovascular: No Symptoms Gastrointestinal: No Symptoms Neurological: No Symptoms Other: Reports: None - Physical Assessment NPO Status Date: 04/15/21 NPO Status Time: 00:00 Height: 5 ft 6 in Weight: 194 lb ASA Class: 2 Mental Status: Alert & Oriented x3 Airway Class: Mallampati = 2 Dentition: Reports: Normal Dentition Thyro-Mental Finger Breadths: 3 Mouth Opening Finger Breadths: 3 ROM/Head Extension: Full Lungs: Clear to Auscultation, Normal Respiratory Effort Cardiovascular: Regular Rate, Regular Rhythm - Allergies Allergies/Adverse Reactions: Allergies Allergy/AdvReac Type Severity Reaction Status Date / Time melon Allergy throat Verified 04/09/21 08:33 swelling environmental allergies Allergy watery Uncoded 04/09/21 08:33 itchy eyes, runny nose - Acknowledgements Anesthesia Type Planned: General Anesthesia Pt an Appropriate Candidate for the Planned Anesthesia: Yes Alternatives and Risks of Anesthesia Discussed w Pt/Guardian: Yes Pt/Guardian Understands and Agrees with Anesthesia Plan: Yes PreAnesthesia Questionnaire HEENT History: Reports: Allergic Rhinitis, Other (See Below) Other HEENT History: wears glasses Cardiovascular History: Reports: None Respiratory History: Reports: Asthma Other Respiratory History: Exercised induced asthma Gastrointestinal History: Reports: Other (See Below) Other Gastrointestinal History: hx Perianal abcess Genitourinary History: Reports: None 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: Musculoskeletal History: Reports: Fracture Other Musculoskeletal History: hx of fx left wrist x2 as a child- no hardware Neurological History: Reports: None Psychiatric History: Reports: Anxiety Endocrine/Metabolic History: Reports: Obesity/BMI 30+, Other (See Below) Other Endocrine/Metabolic History: hx of Hypothyroidism when - not since Hematologic History: Reports: Anemia Immunologic History: Reports: None Oncologic (Cancer) History: Reports: None Dermatologic History: Reports: None - Infectious Disease History Infectious Disease History: Reports: None - Past Surgical History Head Surgeries/Procedures: Reports: None HEENT Surgical History: Reports: Adenoidectomy, Tonsillectomy Cardiovascular Surgical History: Reports: None Respiratory Surgical History: Reports: None GI Surgical History: Reports: Other (See Below) Other GI Surgeries/Procedures: excision of perianal abscess Female Surgical History: Reports: Breast Implant, Hysterectomy Endocrine Surgical History: Reports: None Neurological Surgical History: Reports: None Musculoskeletal Surgical History: Reports: None Oncologic Surgical History: Reports: None Dermatological Surgical History: Reports: None - SUBSTANCE USE Tobacco Use Status *Q: Never Tobacco User Number of Drinks Per Day: 1 - HOME MEDS Home Medications: Home Meds Multivitamin [Multivitamins] 1 tab PO DAILY 02/24/17 [History] EPINEPHrine [Epipen] 0.3 mg IM ONETIME PRN 04/09/21 [History] - CURRENT (IN HOUSE) MEDS Current Meds: Current Medications Albuterol (Albuterol 0.083% 2.5 Mg/3 Ml Neb Soln) 2.5 mg NEB ONETIME PRN PRN Reason: Wheezing Droperidol (Droperidol 5 Mg/2 Ml Sdv) 0.625 mg IVPUSH ONETIME PRN PRN Reason: Nausea/Vomiting Fentanyl (Fentanyl 100 Mcg/2 Ml Sdv) 50 mcg IVPUSH Q5M PRN PRN Reason: Pain (mild 1-3) Hydromorphone HCl (Hydromorphone 1 Mg/Ml Syringe) 1 mg IVPUSH Q10M PRN PRN Reason: Pain (moderate 4-6) Lactated Ringer's (Ringers, Lactated) 1,000 mls @ 125 mls/hr IV ASDIRECTED ERIK Metoclopramide HCl (Metoclopramide 10 Mg/2 Ml Sdv) 10 mg IVPUSH ONETIME PRN PRN Reason: Nausea/Vomiting Morphine Sulfate (Morphine 2 Mg/Ml Syringe) 2 mg IVPUSH Q10M PRN PRN Reason: Pain (severe 7-10) Naloxone HCl (Naloxone 0.4 Mg/Ml Sdv) 0.1 mg IVPUSH ASDIRECTED PRN PRN Reason: Respiratory Depression Ondansetron HCl (Ondansetron 4 Mg/2 Ml Sdv) 4 mg IVPUSH ONETIME PRN PRN Reason: Nausea/Vomiting Sodium Chloride (Sodium Chloride 0.9% 2.5 Ml Syringe) 2.5 ml FLUSH ASDIRECTED PRN PRN Reason: Keep Vein Open Sodium Chloride (Sodium Chloride 0.9% 20 Ml Sdv) 10 ml IV ASDIRECTED PRN PRN Reason: IV Use Sodium Chloride (Sodium Chloride 0.9% 10 Ml Syringe) 10 ml FLUSH ASDIRECTED PRN PRN Reason: Keep Vein Open Discontinued Medications Cefazolin Sodium/Dextrose 2 gm (/ Premix) 50 mls @ 100 mls/hr IV ONETIME ONE Stop: 04/15/21 09:53 Scopolamine (Scopolamine 1.5 Mg Transdermal Patch) Confirm Administered Dose 1.5 mg .ROUTE .STK-MED ONE Stop: 04/15/21 09:59
[~2021-04-15 10:57] MED LIST changes: +Albuterol 0.083% 2.5 MG/3 ML Neb Soln NEB PRN; -Bupivacaine 0.25% 10 ML SDV ONE; -Fluorescein 5 ML Vial ONE; +HYDROmorphone 1 MG/ML Syringe IVPUSH PRN; +Lactated Ringers 1,000 ML IV SCH; -Lidocaine 2% 5 ML SDV ONE; -Methylene Blue 50 MG/10 ML Ampule ONE; +Metoclopramide 10 MG/2 ML SDV IVPUSH PRN; -Midazolam 1 MG/ML 2 ML SDV ONE; +Morphine 2 MG/ML SYRINGE IVPUSH PRN; +Naloxone 0.4 MG/ML SDV IVPUSH PRN; -Neostigmine Methylsulfate 1 MG/ML 5 ML Syringe ONE; +Ondansetron 4 MG/2 ML SDV IVPUSH PRN; -Ondansetron 4 MG/2 ML SDV ONE; -Propofol 200 MG/20 ML SDV ONE; -Rocuronium 10 MG/ML 10 ML Syringe ONE; +Scopolamine 1.5 MG Transdermal Patch ONE; +Sodium Chloride 0.9% 20 ML SDV IV PRN; +fentaNYL 100 MCG/2 ML SDV IVPUSH PRN; -fentaNYL 100 MCG/2 ML SDV ONE
[2021-04-15] MEDS ORDERED: Bupivacaine 0.5% 10 ML SDV ONE (11:12)
[2021-04-15] MEDS ORDERED: Octyl 2-Cyanoacrylate 1 Tube ONE (11:12)
[2021-04-15] MEDS ORDERED: ceFAZolin 1 GM Vial ONE (11:53)
[2021-04-15] MEDS ORDERED: Propofol 200 MG/20 ML SDV ONE (11:54)
[2021-04-15] MEDS ORDERED: fentaNYL 100 MCG/2 ML SDV ONE (11:55)
[2021-04-15] MEDS ORDERED: Dexamethasone 4 MG/ML 5 ML MDV ONE (11:55)
[2021-04-15] MEDS ORDERED: Ondansetron 4 MG/2 ML SDV ONE (11:55)
[2021-04-15] MEDS ORDERED: Ketorolac 30 MG/ML SDV ONE (11:55)
--- NOTE | 2021-04-15 12:27 | PCM.POSTAN ---
POST ANESTHESIA ASSESSMENT - MENTAL STATUS Mental Status: Alert, Oriented - VITAL SIGNS Vital Signs: Last Vital Signs Temp 97.5 F 04/15/21 11:15 Pulse 82 04/15/21 11:15 Resp 14 04/15/21 11:15 BP 108/75 04/15/21 11:15 Pulse Ox 96 04/15/21 11:15 - RESPIRATORY Respiratory Status: Respiratory Rate WNL, Airway Patent, O2 Saturation Stable - CARDIOVASCULAR CV Status: Pulse Rate WNL, Blood Pressure Stable - GASTROINTESTINAL GI Status: No Symptoms - POST OP HYDRATION Hydration Status: Adequate & Stable
--- NOTE | 2021-04-15 12:27 | PCM48HPAN ---
Post Anesthesia Note - EVALUATION WITHIN 48HRS OF ANESTHETIC Vital Signs in Normal Range: Yes Patient Participated in Evaluation: Yes Respiratory Function Stable: Yes Airway Patent: Yes Cardiovascular Function Stable: Yes Hydration Status Stable: Yes Pain Control Satisfactory: Yes Nausea and Vomiting Control Satisfactory: Yes Mental Status Recovered: Yes Vital Signs: Last Vital Signs Temp 97.5 F 04/15/21 11:15 Pulse 82 04/15/21 11:15 Resp 14 04/15/21 11:15 BP 108/75 04/15/21 11:15 Pulse Ox 96 04/15/21 11:15
--- NOTE | 2021-04-15 12:30 | PCM.OPNOTE ---
- General Post-Op/Procedure Note Date of Surgery/Procedure: 04/15/21 Operative Procedure(s): Ventral hernia repair Findings: Supraumbilical hernia containing fat. 1.2 cm fascial defect Pre Op Diagnosis: Ventral hernia Post-Op Diagnosis: same Anesthesia Technique: General LMA Primary Surgeon: Eloina Ley Pathology: hernia sac and contents Fluid Replacement, Intraop: 1,000 EBL in mLs: 2 Condition: Good
[2021-04-15 13:40] VITALS: BP 101/62; PULSE 60
--- NOTE | 2021-04-15 15:26 | OR ---
SURGEON: ELOINA LEY MD DATE OF PROCEDURE: 04/15/2021 PREOPERATIVE DIAGNOSIS: Ventral hernia. POSTOPERATIVE DIAGNOSIS: Ventral hernia. PROCEDURE PERFORMED: Ventral hernia repair. PRIMARY SURGEON: Eloina Ley MD ANESTHESIA: General LMA. FLUIDS: 1000 mL crystalloid. ESTIMATED BLOOD LOSS: 2 mL. FINDINGS: 1.2 cm supraumbilical ventral hernia defect containing fat. COMPLICATIONS: None. INDICATIONS: The patient is a 36-year-old female who presents with a symptomatic ventral hernia. A recent CT scan showed an area of incarcerated fat along the upper midline of her abdomen just above the umbilicus. The patient and I discussed the need for repair. I explained the procedure, expected perioperative course, and the risks. She verbalized understanding and wishes to proceed. PROCEDURE IN DETAIL: The patient was brought into the OR and placed on the OR table in supine position. A time-out was completed verifying the patient's name, age, date of , allergies, and procedure to be performed. General LMA anesthesia was induced. The abdomen was prepped and draped in usual standard fashion. I anesthetized the supraumbilical midline with 0.5% Marcaine plain. A 15-blade was used to make an incision along the supraumbilical midline. Cautery was used to dissect down to the level of subcutaneous fat. Once I reached the level of subcutaneous fat, I palpated down into my incision. I could feel a bulge of tissue in this area. I dissected through the subcutaneous fat. Eventually, I was able to identify a globular piece of fat. This was fat associated with the hernia. The hernia sac was thin and wispy. I dissected this fat free of the surrounding subcutaneous tissues down to the level of fascia. The patient had a small fascial defect where the hernia was coming through. I transected across the base of the hernia sac using cautery. The hernia sac and its contents were sent to Pathology labeled as such. The cut end of the fat was inspected for hemostasis. This fat was then reduced back into the abdomen. Using a hemostat, I cleared away the underside of the fascia. I measured the fascial defect. It measured 1.2 cm x 4 mm in size. The decision was made to close this primarily with suture. A 0 Ethibond suture was brought into the field. A [id number] stitch was used to close the fascial defect. A Valsalva maneuver was performed and the repair appeared to be intact. Hemostasis was achieved with electrocautery. I then closed the overlying subcutaneous fat with layers of interrupted 0 Vicryl sutures. The skin was then closed with a running 4-0 Monocryl stitch. Dermabond and sterile dressings were applied. The patient tolerated the procedure well and was extubated and taken to PACU in stable condition. All counts were complete and correct at the end of the case. AUGIE NEAL /[id number]
== END 2021-04-15 14:08 | disposition home or self-care (01) ==
LOC: MW.SDS 10:57
PROVIDERS: ATTEND Surgery
DX: K43.9 Ventral hernia without obstruction or gangrene (principal); E66.9 Obesity, unspecified; Z79.899 Other long term (current) drug therapy; Z98.890 Other specified postprocedural states; Z87.891 Personal history of nicotine dependence; Z68.31 Body mass index [BMI] 31.0-31.9, adult
CPT/HCPCS: 49560; A9270; J0690; J1100; J1885; J2405; J2704; J3010; J3490; J7120